=== PATIENT | male | born 1965 | race Caucasian/White ===

== ENCOUNTER 2019-12-28 07:36 | Day surgery (SDC) | payer OTHER ==
--- NOTE | 2019-12-27 15:07 | HP ---
ADMIT DATE: PREOPERATIVE HISTORY AND PHYSICAL Neville Hyde is dictating for Dr. Willis Adair. DATE OF SURGERY: 12/28/2019 HISTORY OF PRESENT ILLNESS: The patient is a pleasant 54-year-old, who is having difficulty with right leg weakness. He said in August, he developed severe pain in his lower back, right hip, and anterior right thigh. That pain slowly improved and finally resolved. As it improved, he noted the development of weakness in his right leg. He feels that his leg might give out. He has trouble with stairs. He says his pain now is 2/10. It was 10/10. Activity does cause him discomfort. Sitting for any length of time is associated with discomfort. Most of the pain occurs when he changes from a sitting to a standing position. He finds that walking does help. He currently takes prednisone and has seen some improvement with that. He also takes tizanidine and diclofenac when necessary. He has had right hip studies and those show that the hip is normal. He has seen a chiropractor. He has had physical therapy. PAST MEDICAL HISTORY: Hypertension. PAST SURGICAL HISTORY: He denies. FAMILY HISTORY: No contributory family history. SOCIAL HISTORY: He is self employed; ; exercises weekly; denies substance abuse; former smoker; drinks coffee and soda daily. ALLERGIES: PENICILLIN. CURRENT MEDICATIONS: Synthroid, losartan, amlodipine, Aciphex, hydrochlorothiazide, lovastatin, tizanidine, diclofenac, prednisone, multivitamin, Osteo Bi-Flex, Flonase, and Claritin. REVIEW OF SYSTEMS: A 12-point review of systems was obtained and is noncontributory except for that mentioned above. PHYSICAL EXAMINATION: GENERAL APPEARANCE: On neurosurgery examination, alert, pleasant, no acute distress. HEENT: Head is normocephalic and atraumatic. SKIN: Warm and dry. MUSCULOSKELETAL: Lumbar paraspinal muscle bulk is normal; restricted range of motion of the lumbar spine; hstt-ma-[id number] tenderness of the lower lumbar spine with palpation; normal range of motion of the lower extremities bilaterally. EXTREMITIES: No clubbing, cyanosis, or edema. NEUROLOGIC: Alert and oriented x3; normal recent and remote memory; strength 5/5 in bilateral lower extremities except 4/5 right quadriceps; sensory intact to light touch in bilateral lower extremities except for a decrease in the right knee and proximal right leg; reflexes were present and symmetric in the lower extremities bilaterally except for absent right knee jerk; positive straight leg raising on the right with back and right hip pain; negative straight leg raising on the left; normal gait. IMAGING: Reviewed. I reviewed an MRI scan of the lumbar spine dated 11/12/2019. On that study, there is a large posterior right paramedian disk extrusion at L3-L4. There is a disk fragment seen posterior to the L4 vertebral body on the right with significant effacement of the lateral recess on the right at this level. The herniated fragment is compressing the right L4 nerve root. ASSESSMENT: Intervertebral disk disorders with radiculopathy, lumbar region. PLAN: The patient has a large herniated disk with an extruded inferior fragment compressing the right L4 root along with significant weakness in his right quadriceps. My feeling is that he should undergo lumbar microsurgery to decompress the nerve root and see if we can get some recovery in the right quadriceps. I discussed the surgery with him in detail including the technique and risk as well expected postoperative course. He understands. He would like to go ahead. We will make the arrangements. WILLIS ADAIR MD DR: RAFAL/radha JOB#: [id number] / [id number]
[~2019-12-28] VITALS: Ht 182.9 cm; Wt 81.6 kg
[~2019-12-28 07:36] MED LIST: AMLO2.5T5 PO; BACITRACIN 50,000 UNIT in IV NORMAL SALINE 1000ML BAG 1,000 ML IRR ONE; BUPIVACAINE-EPI 0.5%-1:200000 MPF 30 ML VIAL. ONE; DICL75TA PO; FLUT9.9S NS; GELATIN SPONGE SIZE 100. ONE; GLUC1TAB69 PO; HYDR-2761 PO; HYDR12.58 PO; HYDROmorphone 2 MG/ML VIAL IV PRN; IV RINGERS,LACTATED 1000ML 1,000 ML IV SCH; KETOROLAC 60 MG/2 ML VIAL. ONE; LEVO-101 PO; LORA10CA PO; LOSA-73 PO; LOVA20TA2 PO; MORPHINE SULFATE 2 MG/ML VIAL. IV PRN; MULT-121 PO; NAPR220T70 PO; ONDANSETRON PF 4 MG/2 ML VIAL. IV PRN; PROCHLORPERAZINE 10 MG/2 ML VIAL. IV PRN; RABE20TA18 PO; THROMBIN TOPICAL 20,000 UNIT SPRAY.SYRN KIT TP ONE; TIZA4CAP PO; VANCOMYCIN 1GM IVPB FOR OMNI 250 ML IV ONE; VENTOLIN HFA18 GM INH; fentaNYL PF VIAL 100 MCG/2 ML VIAL IV PRN
[2019-12-28] MEDS ORDERED: PROPOFOL 100 ML IV ONE (07:53)
[2019-12-28] MEDS ORDERED: DESFLURANE > 120 MINUTES IH ONE (08:02)
[2019-12-28] MEDS ORDERED: fentaNYL PF VIAL 100 MCG/2 ML VIAL ONE (08:02)
[2019-12-28] MEDS ORDERED: MIDAZOLAM HCL/PF 2 MG/2 ML VIAL. ONE (08:02)
[2019-12-28] MEDS ORDERED: ROCURONIUM 50 MG/5 ML VIAL. ONE (08:03)
[2019-12-28] MEDS ORDERED: REMIFENTANIL 2 MG VIAL. IV ONE (08:03)
[2019-12-28] MEDS ORDERED: GLYCOPYRROLATE 1 MG/5 ML VIAL. ONE (08:03)
[2019-12-28] MEDS ORDERED: DEXAMETHASONE SOD PHOS 4 MG/ML VIAL ONE (08:03)
[2019-12-28] MEDS ORDERED: ONDANSETRON PF 4 MG/2 ML VIAL. ONE (08:03)
[2019-12-28] MEDS ORDERED: NEOSTIGMINE METHYLSULFATE 5 MG/5 ML SYRINGE. ONE (08:03)
[2019-12-28] MEDS ORDERED: LIDOCAINE 2% PF 5 ML VIAL. ONE (08:03)
[2019-12-28] MEDS ORDERED: PROPOFOL 10 MG/ML (20ML) VIAL. IV ONE (08:03)
[2019-12-28] MEDS ORDERED: PHENYLEPHRINE 10 MG/ML VIAL. ONE (08:10)
--- NOTE | 2019-12-28 11:20 | DISCH ---
DISCHARGE INSTRUCTIONS Condition on Discharge Condition on Discharge: Stable Activity After Discharge Activity Instructions for Disc: Activity as tolerated, Avoid exertion Bathing Instructions: Shower-keep dressing dry Lifting Instructions after Dis: No heavy lifting, No pulling or pushing, Do not lift >10 pounds Diet after Discharge Additional Diet Restrictions: resume home diet Wound Incision Care Wound/Incision Care: Ice to area for comfort Other wound/incision instructi: may remove dressing in 48 hours if dry then may shower, no soaking Contacting the DRJimbo after DC Call your doctor for: Concerns you may have Follow-Up Follow up with: Dr. Adair's nurse in 2 weeks [phone] MARLEN ADAIR MD Dec 28, 2019 11:20
[2019-12-28 12:00] VITALS: BP 113/71
[2019-12-28] MEDS ORDERED: HYDROcodone/APAP 5/325MG 1 TAB TABLET PO ONE ×2 (12:00)
--- NOTE | 2019-12-28 12:35 | OP ---
DATE OF SURGERY: 12/28/2019 PREOPERATIVE DIAGNOSES: Herniated lumbar disk L3-L4 with inferior extruded disk fragment and resulting right lumbar radiculopathy. POSTOPERATIVE DIAGNOSES: Herniated lumbar disk L3-L4 with inferior extruded disk fragment and resulting right lumbar radiculopathy. OPERATION PERFORMED: Hemilaminotomy and microdiskectomy at L3-L4 right. The operation was done with EMG monitoring, microscopic dissection, fluoroscopy. MILLER HELPER: DEBORAH Cleveland assisted with the surgery. She assisted with the exposure, the microdiskectomy as well as the closure. OPERATIVE INDICATIONS: The patient is a very pleasant 54-year-old man who developed intractable back and right leg pain, which failed conservative measures. He had the above-mentioned findings on imaging studies, I recommended lumbar microsurgery. I spoke with him about the surgery, the risks, technique and expected postoperative course and he wished to go ahead. DESCRIPTION OF PROCEDURE: Following general endotracheal anesthesia, the patient was positioned prone on the Patrick frame. ARDEN hose and AV impulse boots were applied for DVT prophylaxis. The microscope was draped. Fluoroscopy was draped and brought into field. Monitoring was established. Vancomycin 1 gram was given less than 1 hour prior to initiation of the surgery. We were very careful to avoid any pressure points. He was prepped and draped in standard fashion. A midline incision was made using fluoroscopic guidance directly over the L3-L4 interspace and dissected down through skin and subcutaneous tissue. I placed a microdisk retractor. I brought in the microscope, burred down a generous hemilaminotomy through the microscope and then trimmed away very thickened ligamentum flavum and worked superiorly to inferiorly and performed a generous foraminotomy to allow excellent inferior exposure. Ligamentum flavum was very thick and markedly compressing the dura. This was removed, the dura was free, the root was free. I was able to develop a plane between the root and the underlying extruded disk fragment, which was subligamentous. I opened the ligament and began to remove large disk fragments. I worked very far inferiorly and removed very large fragment from inferiorly. Then, the area was widely decompressed. I worked superiorly and also removed disk fragments. The disk space was quite tightly compressed. There was no significant disk from the disk space. I irrigated it copiously. I explored carefully. There were no retained fragments. The roots were very free. I then removed the retractor, obtained excellent hemostasis ____. I then irrigated it copiously again and closed the wound in layers with absorbable suture. Skin was closed with 4-0 subcuticular stitch. The surgery went very well. I was quite pleased. MARLEN ADAIR MD DR: RAFAL/radha JOB#: [id number] / [id number]
--- NOTE | 2019-12-31 18:06 | PATHOLOGY ---
[facility] Accession Number: [id number] . 01 Material submitted: . vertebral column - LUMBAR DISC AND DECOMPRESSION . 01 Clinical history: . Lumbar herniated disc with radiculopathy . 02 Diagnosis: Segments of fibrocartilaginous tissue and bone, lumbar disc and decompression: - Degenerative changes of fibrocartilaginous tissue. LBQ 12/31/2019 1528 Local . 02 Comment: There is no evidence of an acute inflammatory process or malignancy. (JPM/db; 12/31/2019) . 02 Electronically signed: . Rodney Venegas MD, Pathologist NPI- [id number] . 01 Gross description: . The specimen is received in formalin, labeled "Artem Ports, lumbar disc and decompression". Received are multiple segments of pink-ibrahim, fibrous, gritty tissue admixed with fragments of bone measuring 3.8 x 3.8 x 1.1 cm in aggregate dimensions. The specimen is submitted representatively in cassette A1, following decalcification. (CAA; 12/28/2019) QAC/QAC 12/31/2019 1526 Local . 02 Pathologist provided ICD-10: M51.26, M54.10 . 02 CPT . 689716, [id number] Specimen Comment: A courtesy copy of this report has been sent to [phone], [phone] Specimen Comment: [id number] Specimen Comment: Report sent to Performed at: 01 [facility] [address], [place] [id number] MD Yaya Talbot MD Phone: [phone] Performed at: 02 [facility] [address], [place] [id number] MD Rodney eVnegas MD Phone: [phone]
== END 2019-12-28 12:55 | disposition home or self-care (01) ==
LOC: SURG 07:36
PROVIDERS: ATTEND Neurological Surgery
DX: M51.16 Intervertebral disc disorders with radiculopathy, lumbar region (principal)
CPT/HCPCS: 63030; 76000; 97161; A7015; J1100; J1885; J2250; J2370; J2405; J2704; J2710; J3010; J3370; J3490; J7030; 88304; 88311